=== PATIENT | female | born 1955 | race Caucasian/White ===

== ENCOUNTER 2017-10-18 10:13 | Observation (INO) | payer OTHER ==
[2017-10-18] MEDS ORDERED: Aspirin 81 MG Tab.Chew PO ONE (10:20)
[2017-10-18] MEDS ORDERED: Sodium Chloride 0.9% 1,000 ML IV SCH (10:30)
[2017-10-18] MEDS: Nitroglycerin 0.4 MG Tab.SL SL PRN ×2 (10:32→10:46)
[2017-10-18] MEDS ORDERED: HYDROmorphone 0.5 MG/0.5 ML Syringe IVPUSH ONE (10:57)
--- NOTE | 2017-10-18 11:26 | EDM.PDOC ---
ED HPI GENERAL MEDICAL PROBLEM - General Chief Complaint: Chest Pain Stated Complaint: HEART?? Time Seen by Provider: 10/18/17 10:20 Source of Information: Reports: Patient History Limitations: Reports: No Limitations - History of Present Illness INITIAL COMMENTS - FREE TEXT/NARRATIVE: pt arrived having retrosternal chest pain which cam on about 8 am and the pain was persistent. She did not have shoulder pain. She was nauseated. She did not get sweaty. Onset: Today, Sudden, Other ( started about 8 am. ) Duration: Hour(s):, Getting Worse Location: Reports: Chest Associated Symptoms: Reports: Chest Pain, Nausea/Vomiting chest Pain Score (Numeric/FACES): 1 - Related Data Allergies Allergy/AdvReac Type Severity Reaction Status Date / Time No Known Allergies Allergy Verified 10/18/17 10:29 Home Meds: Home Meds NK [No Known Home Meds] 10/18/17 [History] Past Medical History - Past Surgical History HEENT Surgical History: Reports: Tonsillectomy GI Surgical History: Reports: Appendectomy, Bariatric Procedure, Other (See Below) Other GI Surgeries/Procedures: 2012 Social & Family History - Tobacco Use Smoking Status *Q: Never Smoker - Recreational Drug Use Recreational Drug Use: No ED ROS GENERAL - Review of Systems Review Of Systems: See Below Constitutional: Reports: No Symptoms HEENT: Reports: No Symptoms Respiratory: Reports: No Symptoms Cardiovascular: Reports: Chest Pain Endocrine: Reports: No Symptoms GI/Abdominal: Reports: Nausea : Reports: No Symptoms Musculoskeletal: Reports: No Symptoms Skin: Reports: No Symptoms Neurological: Reports: No Symptoms Psychiatric: Reports: No Symptoms ED EXAM, GENERAL - Physical Exam Exam: See Below Free Text/Narrative:: pt arrived with retrosternal chest pain. She was not sweaty but she was nauseated. . She has no past cardiac history. Exam Limited By: No Limitations General Appearance: Alert, Anxious, Moderate Distress, Other ( Pt was rating her pain at a 9 on arrival. ) Ears: Normal TMs Throat/Mouth: Normal Inspection Head: Atraumatic Neck: Normal Inspection Respiratory/Chest: No Respiratory Distress Cardiovascular: Regular Rate, Rhythm GI/Abdominal: Soft, Non-Tender, Other ( bowel sounds are hyperactive) (Female) Exam: Deferred Rectal (Female) Exam: Deferred Extremities: Normal Inspection Neurological: Alert, Oriented, Normal Cognition Psychiatric: Normal Affect Course - Vital Signs Last Recorded V/S: Last Vital Signs Temp 36.9 C 10/18/17 10:48 Pulse 56 L 10/18/17 10:48 Resp 16 10/18/17 11:43 BP 112/73 10/18/17 11:43 Pulse Ox 98 10/18/17 11:43 - Orders/Labs/Meds Orders: Active Orders 24 hr Category Date Time Status EKG Documentation Completion [RC] ASDIRECTED Care 10/18/17 10:17 Active Abdomen Ltd [US] Stat Exams 10/18/17 10:55 Ordered Nitroglycerin [Nitrostat] Med 10/18/17 10:20 Active 0.4 mg SL Q5M PRN Sodium Chloride 0.9% [Normal Saline] 1,000 ml Med 10/18/17 10:30 Active IV ASDIRECTED EKG 12 Lead [EK] Routine Ther 10/18/17 10:17 Ordered Medication Orders Sodium Chloride (Normal Saline) 1,000 mls @ 100 mls/hr IV ASDIRECTED GLORIA Last Admin: 10/18/17 10:32 Dose: 100 mls/hr Nitroglycerin (Nitrostat) 0.4 mg SL Q5M PRN PRN Reason: Chest Pain Last Admin: 10/18/17 10:46 Dose: 0.4 mg Admin: 10/18/17 10:32 Dose: 0.4 mg Labs: Laboratory Tests 10/18/17 10/18/17 10/18/17 Range/Units 10:25 10:25 10:25 WBC 7.7 (4.5-11.0) K/uL RBC 4.57 (3.30-5.50) M/uL Hgb 14.6 (12.0-15.0) g/dL Hct 44.4 (36.0-48.0) % MCV 97 (80-98) fL MCH 32 H (27-31) pg MCHC 33 (32-36) % Plt Count 223 (150-400) K/uL Neut % (Auto) 67 H (36-66) % Lymph % (Auto) 24 (24-44) % [place] % (Auto) 8 H (2-6) % Eos % (Auto) 1 L (2-4) % Baso % (Auto) 0 (0-1) % Sodium 142 (140-148) mmol/L Potassium 4.9 (3.6-5.2) mmol/L Chloride 107 (100-108) mmol/L Carbon Dioxide 30 (21-32) mmol/L Anion Gap 5.2 (5.0-14.0) mmol/L BUN 24 H (7-18) mg/dL Creatinine 0.8 (0.6-1.0) mg/dL Est Cr Clr Drug Dosing 69.99 mL/min Estimated GFR (MDRD) > 60 (>60) Glucose 119 H (74-106) mg/dL Calcium 9.6 (8.5-10.1) mg/dL Total Bilirubin 0.8 (0.2-1.0) mg/dL AST 210 H (15-37) U/L ALT 81 H (12-78) U/L Alkaline Phosphatase 86 (46-116) U/L Troponin I < 0.017 (0.000-0.056) ng/mL Total Protein 6.8 (6.4-8.2) g/dL Albumin 3.4 (3.4-5.0) g/dL Globulin 3.4 (2.3-3.5) g/dL Albumin/Globulin Ratio 1.0 L (1.2-2.2) Amylase (25-115) U/L Lipase (73-393) U/L 10/18/17 Range/Units 10:57 WBC (4.5-11.0) K/uL RBC (3.30-5.50) M/uL Hgb (12.0-15.0) g/dL Hct (36.0-48.0) % MCV (80-98) fL MCH (27-31) pg MCHC (32-36) % Plt Count (150-400) K/uL Neut % (Auto) (36-66) % Lymph % (Auto) (24-44) % [place] % (Auto) (2-6) % Eos % (Auto) (2-4) % Baso % (Auto) (0-1) % Sodium (140-148) mmol/L Potassium (3.6-5.2) mmol/L Chloride (100-108) mmol/L Carbon Dioxide (21-32) mmol/L Anion Gap (5.0-14.0) mmol/L BUN (7-18) mg/dL Creatinine (0.6-1.0) mg/dL Est Cr Clr Drug Dosing mL/min Estimated GFR (MDRD) (>60) Glucose (74-106) mg/dL Calcium (8.5-10.1) mg/dL Total Bilirubin (0.2-1.0) mg/dL AST (15-37) U/L ALT (12-78) U/L Alkaline Phosphatase (46-116) U/L Troponin I (0.000-0.056) ng/mL Total Protein (6.4-8.2) g/dL Albumin (3.4-5.0) g/dL Globulin (2.3-3.5) g/dL Albumin/Globulin Ratio (1.2-2.2) Amylase 77 (25-115) U/L Lipase 221 (73-393) U/L Meds: Medications Generic Name Dose Route Start Last Admin Trade Name Freq PRN Reason Stop Dose Admin Sodium Chloride 1,000 mls @ 100 mls/hr 10/18/17 10:30 10/18/17 10:32 Normal Saline IV 100 mls/hr ASDIRECTED GLORIA Administration Nitroglycerin 0.4 mg 10/18/17 10:20 10/18/17 10:46 Nitrostat SL 0.4 mg Q5M PRN Administration Chest Pain Discontinued Medications Generic Name Dose Route Start Last Admin Trade Name Freq PRN Reason Stop Dose Admin Aspirin 324 mg 10/18/17 10:20 10/18/17 10:32 Aspirin PO 10/18/17 10:21 324 mg ONETIME ONE Administration Hydromorphone HCl 0.5 mg 10/18/17 10:57 10/18/17 11:19 Dilaudid IVPUSH 10/18/17 10:58 0.5 mg ONETIME ONE Administration - Re-Assessments/Exams Free Text/Narrative Re-Assessment/Exam: 10/18/17 11:27 pt had a normal looking ekg and her trop was normal. Her liver enzymes were up. A US of the gb will be obtained. 10/18/17 12:02 Us revealed a gb full of stones, gb wall was not thickened. She did have a stone down in the neck of the gb. Departure - Departure Time of Disposition: 12:03 Disposition: Admitted As Inpatient 64 Condition: Fair Clinical Impression: Atypical chest pain, Cholelithiases, Elevated liver enzymes Referrals: PCP,None [Primary Care Provider] - Forms: ED Department Discharge Care Plan Goals: admit to Dr gutierrez - My Orders Last 24 Hours: My Active Orders 10/18/17 10:17 EKG Documentation Completion [RC] ASDIRECTED EKG 12 Lead [EK] Routine 10/18/17 10:20 Nitroglycerin [Nitrostat] 0.4 mg SL Q5M PRN 10/18/17 10:30 Sodium Chloride 0.9% [Normal Saline] 1,000 ml IV ASDIRECTED 10/18/17 10:55 Abdomen Ltd [US] Stat - Assessment/Plan Last 24 Hours: My Active Orders 10/18/17 10:17 EKG Documentation Completion [RC] ASDIRECTED EKG 12 Lead [EK] Routine 10/18/17 10:20 Nitroglycerin [Nitrostat] 0.4 mg SL Q5M PRN 10/18/17 10:30 Sodium Chloride 0.9% [Normal Saline] 1,000 ml IV ASDIRECTED 10/18/17 10:55 Abdomen Ltd [US] Stat
--- NOTE | 2017-10-18 11:29 | CR ---
Chest 1V Frontal FINDINGS: The heart and vascular structures are normal in appearance. No infiltrates or effusions are demonstrated. The skeletal structures are unremarkable. IMPRESSION: Negative exam.
--- NOTE | 2017-10-18 12:56 | US ---
Ultrasound RUQ The liver is homogeneous. There is normal echogenicity. No focal hepatic lesions are demonstrated. Mu ltiple gallstones are demonstrated. There is no wall thickening. There is no pericholecystic fluid. T here is no pain with palpation overlying the gallbladder. The common bile duct measures within normal limits equal to 3 mm.. The visualized portions of the pancreas are unremarkable. The right kidney is normal in size. There is no hydronephrosis. There are no stones seen. The abdominal aorta and IVC ar e unremarkable. Impression: 1. Cholelithiasis. No findings of acute inflammation.
--- NOTE | 2017-10-18 13:42 | PCM.HP ---
H&P History of Present Illness - General Date of Service: 10/18/17 Admit Problem/Dx: Admission Diagnosis/Problem Admission Diagnosis/Problem Chest pain Source of Information: Patient, Family, Provider, RN Notes Reviewed History Limitations: Reports: No Limitations - History of Present Illness Initial Comments - Free Text/Narative: Ms. Alvarenga is a 61-year-old woman who is admitted to observation status through the emergency department for further evaluation and management of chest pain. She denies any previous her known history of coronary artery disease. This morning developed substernal chest pain described as an intense ache which radiated to the left upper quadrant of the abdomen. There is also pain into her back as well as into the right shoulder and down the right arm. Symptoms were associated with nausea and vomiting. There was no diaphoresis or shortness of breath. She's had one previous episode which occurred 3 days ago following her noontime meal. This episode seemed to track after breakfast. Symptoms lasted approximately 2 hours and resolved after she received nitroglycerin in the emergency department. She has no significant risk factors for coronary artery disease. EKG showed no acute ST segment changes and her initial troponin level is within normal range. HEART score is 3. chest Pain Score (Numeric/FACES): 1 - Related Data Allergies/Adverse Reactions: Allergies Allergy/AdvReac Type Severity Reaction Status Date / Time No Known Allergies Allergy Verified 10/18/17 10:29 Home Medications: Home Meds NK [No Known Home Meds] 10/18/17 [History] Past Medical History - Past Surgical History HEENT Surgical History: Reports: Tonsillectomy GI Surgical History: Reports: Appendectomy, Bariatric Procedure, Other (See Below) Other GI Surgeries/Procedures: 2013 Social & Family History - Tobacco Use Smoking Status *Q: Never Smoker - Recreational Drug Use Recreational Drug Use: No H&P Review of Systems - Review of Systems: Review Of Systems: See Below General: Denies: Fever, Chills, Diaphoresis HEENT: Reports: No Symptoms Pulmonary: Reports: No Symptoms Cardiovascular: Reports: Chest Pain. Denies: Palpitations, Dyspnea on Exertion , Orthopnea, PND, Edema, Lightheadedness, Syncope Gastrointestinal: Reports: Nausea, Vomiting. Denies: Abdominal Pain, Black Stool, Bloody Stool, Constipation, Diarrhea, Decreased Appetite, Difficulty Swallowing, Distension Genitourinary: Reports: No Symptoms Musculoskeletal: Reports: No Symptoms Skin: Reports: No Symptoms Psychiatric: Reports: No Symptoms Neurological: Reports: No Symptoms Hematologic/Lymphatic: Reports: No Symptoms Immunologic: Reports: No Symptoms Exam - Exam Exam: See Below - Vital Signs Vital Signs: Last Vital Signs Temp 98.4 F 10/18/17 10:48 Pulse 56 L 10/18/17 10:48 Resp 16 10/18/17 12:43 BP 122/68 10/18/17 12:43 Pulse Ox 99 10/18/17 12:43 Weight: 185 lb - Exam Quality Assessment: DVT Prophylaxis General: Alert, Oriented, Cooperative HEENT: Conjunctiva Clear, Hearing Intact, Mucosa Moist & [place], Normal Nasal Septum, Posterior Pharynx Clear, Pupils Equal Neck: Supple, Trachea Midline, +2 Carotid Pulse wo Bruit Lungs: Clear to Auscultation, Normal Respiratory Effort Cardiovascular: Regular Rate, Regular Rhythm, Normal S1, Normal S2. No: Systolic Murmur, Diastolic Murmur GI/Abdominal Exam: Soft, Non-Tender, No Organomegaly, No Distention Back Exam: Normal Inspection, Full Range of Motion Extremities: Non-Tender, No Pedal Edema Skin: Warm, Dry, Intact Neurological: Cranial Nerves Intact, Strength Equal Bilateral, Normal Speech, Normal Tone, Sensation Intact. No: Focal Deficit Neuro Extensive - Mental Status: Alert, Oriented x3, Normal Mood/Affect, Normal Cognition, Memory Intact - Patient Data Lab Results Last 24 hrs: Laboratory Results - last 24 hr 10/18/17 10/18/17 10/18/17 Range/Units 10:25 10:25 10:25 WBC 7.7 (4.5-11.0) K/uL RBC 4.57 (3.30-5.50) M/uL Hgb 14.6 (12.0-15.0) g/dL Hct 44.4 (36.0-48.0) % MCV 97 (80-98) fL MCH 32 H (27-31) pg MCHC 33 (32-36) % Plt Count 223 (150-400) K/uL Neut % (Auto) 67 H (36-66) % Lymph % (Auto) 24 (24-44) % [place] % (Auto) 8 H (2-6) % Eos % (Auto) 1 L (2-4) % Baso % (Auto) 0 (0-1) % Sodium 142 (140-148) mmol/L Potassium 4.9 (3.6-5.2) mmol/L Chloride 107 (100-108) mmol/L Carbon Dioxide 30 (21-32) mmol/L Anion Gap 5.2 (5.0-14.0) mmol/L BUN 24 H (7-18) mg/dL Creatinine 0.8 (0.6-1.0) mg/dL Est Cr Clr Drug Dosing 69.99 mL/min Estimated GFR (MDRD) > 60 (>60) Glucose 119 H (74-106) mg/dL Calcium 9.6 (8.5-10.1) mg/dL Total Bilirubin 0.8 (0.2-1.0) mg/dL AST 210 H (15-37) U/L ALT 81 H (12-78) U/L Alkaline Phosphatase 86 (46-116) U/L Troponin I < 0.017 (0.000-0.056) ng/mL Total Protein 6.8 (6.4-8.2) g/dL Albumin 3.4 (3.4-5.0) g/dL Globulin 3.4 (2.3-3.5) g/dL Albumin/Globulin Ratio 1.0 L (1.2-2.2) Amylase (25-115) U/L Lipase (73-393) U/L 10/18/17 Range/Units 10:57 WBC (4.5-11.0) K/uL RBC (3.30-5.50) M/uL Hgb (12.0-15.0) g/dL Hct (36.0-48.0) % MCV (80-98) fL MCH (27-31) pg MCHC (32-36) % Plt Count (150-400) K/uL Neut % (Auto) (36-66) % Lymph % (Auto) (24-44) % [place] % (Auto) (2-6) % Eos % (Auto) (2-4) % Baso % (Auto) (0-1) % Sodium (140-148) mmol/L Potassium (3.6-5.2) mmol/L Chloride (100-108) mmol/L Carbon Dioxide (21-32) mmol/L Anion Gap (5.0-14.0) mmol/L BUN (7-18) mg/dL Creatinine (0.6-1.0) mg/dL Est Cr Clr Drug Dosing mL/min Estimated GFR (MDRD) (>60) Glucose (74-106) mg/dL Calcium (8.5-10.1) mg/dL Total Bilirubin (0.2-1.0) mg/dL AST (15-37) U/L ALT (12-78) U/L Alkaline Phosphatase (46-116) U/L Troponin I (0.000-0.056) ng/mL Total Protein (6.4-8.2) g/dL Albumin (3.4-5.0) g/dL Globulin (2.3-3.5) g/dL Albumin/Globulin Ratio (1.2-2.2) Amylase 77 (25-115) U/L Lipase 221 (73-393) U/L Result Diagrams: 10/18/17 10:25 10/18/17 10:25 *Q Meaningful Use (ADM) - VTE *Q VTE Criteria *Q: - VTE Risk Assess *Q Each Risk Factor Represents 1 Point: None Total Score 1 Point Risk Factors: 0 Each Risk Factor Represents 2 Points: Age 60 - 74 Years Total Score 2 Point Risk Factors: 2 Each Risk Factor Represents 3 Points: None Total Score 3 Point Risk Factors: 0 Each Risk Factor Represents 5 Points: None Total Score 5 Point Risk Factors: 0 Venous Thromboembolism Risk Factor Score *Q: 2 - Stroke *Q Stroke Criteria *Q: - AMI *Q AMI Criteria *Q: Problem List Initiated/Reviewed/Updated: Yes Orders Last 24hrs: Active Orders 24 hr Category Date Time Status Patient Status Manage Transfer [TRANSFER] Routine ADT 10/18/17 13:37 Ordered EKG Documentation Completion [RC] ASDIRECTED Care 10/18/17 10:17 Active Nitroglycerin [Nitrostat] Med 10/18/17 10:20 Active 0.4 mg SL Q5M PRN Sodium Chloride 0.9% [Normal Saline] 1,000 ml Med 10/18/17 10:30 Active IV ASDIRECTED Resuscitation Status Routine Resus Stat 10/18/17 13:38 Ordered EKG 12 Lead [EK] Routine Ther 10/18/17 10:17 Ordered Medication Orders Sodium Chloride (Normal Saline) 1,000 mls @ 100 mls/hr IV ASDIRECTED GLORIA Last Admin: 03/23/18 10:32 Dose: 100 mls/hr Nitroglycerin (Nitrostat) 0.4 mg SL Q5M PRN PRN Reason: Chest Pain Last Admin: 10/18/17 10:46 Dose: 0.4 mg Admin: 10/18/17 10:32 Dose: 0.4 mg Assessment/Plan Comment:: ASSESSMENT AND PLAN CHEST PAIN-abrupt onset this morning of moderate to severe intensity, lasting approximately 2 hours, resolved with 2 doses of sublingual nitroglycerin. No risk factors for coronary artery disease no recent history of exertional symptoms. HEART score is 3. Initial EKG shows no acute ST segment changes and initial troponin level is within normal range. Ultrasound of the right upper quadrant shows cholelithiasis but no evidence of gallbladder wall thickening or ductal dilatation. -Observation admission -Serial troponin levels -Outpatient exercise Cardiolite study -If Cardiolite study unremarkable proceed with outpatient evaluation for gallbladder disease with CCK stimulated HIDA scan MAINTENANCE ISSUES -DVT prophylaxis; ambulation -GI prophylaxis; not indicated -Browning catheter; not indicated -Nutrition; regular diet -Nicotine dependence; not required CODE STATUS-FULL CODE ADMISSION STATUS-this patient will be admitted to observation status, expect no more than a one night hospital stay for evaluation and management of problems as outlined above. DISPOSITION-anticipate discharge to home after the hospital stay. PRIMARY CARE PROVIDER-up until now patient has received all of her medical care through the [facility] in [place].
[2017-10-18] MEDS ORDERED: Morphine 2 MG/ML Syringe IVPUSH PRN (14:17)
[2017-10-18] MEDS ORDERED: Acetaminophen 325 MG Tab PO PRN (14:17)
[2017-10-18] MEDS ORDERED: Nitroglycerin 0.4 MG Tab.SL SL PRN (14:17)
[2017-10-18] MEDS ORDERED: Sodium Chloride 0.9% 10 ML Syringe FLUSH PRN (14:17)
[2017-10-18] MEDS ORDERED: Ondansetron 4 MG/2 ML SDV IV PRN (14:17)
[2017-10-18] MEDS ORDERED: diphenhydrAMINE 25 MG Cap PO PRN (18:43)
--- NOTE | 2017-10-19 09:33 | PCM.DCSUM1 ---
Discharge Summary - Hospital Course Brief History: Ms. Alvarenga is a 61-year-old woman admitted through the emergency department observation status for further evaluation and management of chest pain. - Discharge Data Discharge Date: 10/19/17 Discharge Disposition: Home, Self-Care 01 Condition: Fair - Discharge Diagnosis/Problem(s) (1) Chest pain SNOMED Code(s): 40208358 ICD Code: R07.9 - CHEST PAIN, UNSPECIFIED Status: Acute Current Visit: Yes (2) Cholelithiases SNOMED Code(s): 531335619 ICD Code: K80.20 - CALCULUS OF GALLBLADDER W/O CHOLECYSTITIS W/O OBSTRUCTION Status: Acute Current Visit: Yes (3) Elevated liver enzymes SNOMED Code(s): 209551560 ICD Code: R74.8 - ABNORMAL LEVELS OF OTHER SERUM ENZYMES Status: Acute Current Visit: Yes - Patient Summary/Data Hospital Course: Ms. Alvarenga is a 61-year-old woman who was admitted to observation status through the emergency department for further evaluation and management of chest pain. She denied any previous history of coronary artery disease. On the morning of admission she developed substernal chest pain described as an intense ache which radiated to the left upper quadrant of the abdomen. There was also pain into her back as well as into the right shoulder and down the right arm. Symptoms were associated with nausea and vomiting. There was no diaphoresis or shortness of breath. She's had one previous episode which occurred 3 days ago following her noontime meal. This episode occurred shortly after breakfast. Symptoms lasted approximately 2 hours and resolved after she received nitroglycerin in the emergency department. She has no significant risk factors for coronary artery disease. EKG showed no acute ST segment changes and her initial troponin level is within normal range. HEART score was 3. She was admitted to observation status, serial troponin levels were obtained and all found to be within normal range. She had no recurrence of her symptoms, further studies including exercise Cardiolite and HIDA scans were not available because of the weekend. Plan had been to schedule these studies as an outpatient , first portion of this next week. She prefers to have further evaluation performed at the [facility] in [place] because of insurance purposes. She is going to contact the primary care clinic after the weekend and didn't appointment scheduled for as soon as possible. She will return immediately to the emergency department if she experiences recurrent symptoms. I have encouraged her to remain fairly sedentary until she is able to get further evaluation and to follow a low-fat diet. She will be discharged home with Protonix 40 mg by mouth daily. - Patient Instructions Diet: Heart Healthy Diet Diet, Other: Low fat Activity: As Tolerated Other/Special Instructions: Patient will follow-up at the [facility] in [place] next week for further cardiac and GI evaluation. Return to the emergency department immediately if she has recurrent symptoms of pain, nausea, or vomiting. - Discharge Plan Prescriptions/Med Rec: Pantoprazole [ProTONIX] 40 mg PO DAILY #30 tab.cr Home Medications: Home Meds Pantoprazole [ProTONIX] 40 mg PO DAILY #30 tab.cr 10/19/17 [Rx] Referrals: PCP,None [Primary Care Provider] - - Patient Data Vitals - Most Recent: Last Vital Signs Temp 98.6 F 10/19/17 07:00 Pulse 72 10/19/17 07:00 Resp 16 10/19/17 07:00 BP 132/83 10/19/17 07:00 Pulse Ox 96 10/19/17 07:00 Weight - Most Recent: 184 lb 15.485 oz I&O - Last 24 hours: Intake & Output 10/18/17 10/19/17 10/19/17 22:59 06:59 14:59 Intake Total 240 Output Total 150 1650 200 Balance -150 -1410 -200 Lab Results - Last 24 hrs: Laboratory Results - last 24 hr 10/18/17 10/18/17 10/19/17 Range/Units 14:35 20:27 05:45 Troponin I < 0.017 < 0.017 < 0.017 (0.000-0.056) ng/mL Med Orders - Current: Current Medications Acetaminophen (Tylenol) 650 mg PO Q4H PRN PRN Reason: Pain (Mild 1-3)/fever Diphenhydramine HCl (Benadryl) 50 mg PO BEDTIME PRN PRN Reason: Sleep Last Admin: 10/18/17 21:28 Dose: 50 mg Morphine Sulfate (Morphine) 2 mg IVPUSH Q2H PRN PRN Reason: Pain (severe 7-10) Nitroglycerin (Nitrostat) 0.4 mg SL Q5M PRN PRN Reason: Chest Pain Ondansetron HCl (Zofran) 4 mg IV Q4H PRN PRN Reason: Nausea/Vomiting Sodium Chloride (Saline Flush) 10 ml FLUSH ASDIRECTED PRN PRN Reason: Keep Vein Open Discontinued Medications Aspirin (Aspirin) 324 mg PO ONETIME ONE Stop: 10/18/17 10:21 Last Admin: 10/18/17 10:32 Dose: 324 mg Hydromorphone HCl (Dilaudid) 0.5 mg IVPUSH ONETIME ONE Stop: 10/18/17 10:58 Last Admin: 10/18/17 11:19 Dose: 0.5 mg Sodium Chloride (Normal Saline) 1,000 mls @ 100 mls/hr IV ASDIRECTED GLORIA Last Admin: 10/18/17 10:32 Dose: 100 mls/hr Nitroglycerin (Nitrostat) 0.4 mg SL Q5M PRN PRN Reason: Chest Pain Last Admin: 10/18/17 10:46 Dose: 0.4 mg *Q Meaningful Use (DIS) - VTE *Q VTE Criteria *Q: - Stroke *Q Stroke Criteria *Q: - AMI *Q AMI Criteria *Q:
== END 2017-10-19 10:25 | disposition home or self-care (01) ==
LOC: JP.ED 10:13 → JP.ICU 13:37
PROVIDERS: ADMIT Hospitalist; ATTEND Hospitalist
DX: R07.2 Precordial pain (principal); K80.20 Calculus of gallbladder without cholecystitis without obstruction; R74.8 Abnormal levels of other serum enzymes; Z79.899 Other long term (current) drug therapy
CPT/HCPCS: 36415; 71045; 71045-26; 76705; 76705-26; 80053; 82150; 83690; 84484; 85025; 93005; 96374; 99285-25; A9270-GY; J1170; J7040

== ENCOUNTER 2022-03-08 06:43 | Day surgery (SDC) | payer MEDICARE, OTHER ==
[2022-03-08] MEDS ORDERED: Lactated Ringers 1,000 ML IV SCH (07:30)
[2022-03-08] MEDS ORDERED: fentaNYL 100 MCG/2 ML SDV ONE (07:45)
[2022-03-08] MEDS ORDERED: Midazolam 1 MG/ML 2 ML SDV ONE (07:45)
[2022-03-08] MEDS ORDERED: Propofol 200 MG/20 ML SDV ONE (07:45)
== END 2022-03-08 10:00 | disposition home or self-care (01) ==
LOC: JP.SDS 06:43
PROVIDERS: ATTEND Family Medicine
DX: K92.1 Melena (principal); D50.9 Iron deficiency anemia, unspecified; Z98.84 Bariatric surgery status
CPT/HCPCS: 45378; J2250; J2704; J3010; J7120